=== PATIENT | male | born 1980 | race Caucasian/White ===

== ENCOUNTER 2019-12-17 17:25 | Emergency (ER) | payer SELFPAY ==
[~2019-12-17] VITALS: Ht 182.9 cm; Wt 93.0 kg
--- NOTE | 2019-12-17 18:30 | NUR ---
Dr [email or web address] in progress
[2019-12-17] MEDS ORDERED: SODIUM BICARBONATE 4.2 % (NEUT) 5 ML VIAL TP ONE (18:45)
[2019-12-17] MEDS ORDERED: LIDOCAINE 1%-EPI 1:100,000 20 ML VIAL IJ ONE (18:45)
[2019-12-17] MEDS ORDERED: TDAP DIPH,PERTUSS,TET VAC/PF 0.5 ML DISP.SYRIN IM ONE ×2 (18:45→19:01)
[2019-12-17 19:10] VITALS: BP 119/81
--- NOTE | 2019-12-17 19:14 | NUR ---
Patient discharged to home in stable condition. Written and verbal after care instructions given. Patient verbalizes understanding of instructions. No bleeding on wound site. NO N/V. Patient A & O X3.
== END 2019-12-17 19:16 | disposition home or self-care (01) ==
LOC: ER 17:27
DX: S01.01XA Laceration without foreign body of scalp, initial encounter (principal); W01.198A Fall on same level from slipping, tripping and stumbling with subsequent striking against other object, initial encounter; Y93.89 Activity, other specified; Y92.89 Other specified places as the place of occurrence of the external cause; Y99.8 Other external cause status
CPT/HCPCS: 12002; 90471; 90715; 99283; J3490 ×2; A4663